=== PATIENT | female | born 1995 | race American Indian/Alaskan Native ===

== ENCOUNTER 2018-02-17 00:36 | Emergency (ER) | payer OTHER ==
--- NOTE | 2018-02-17 03:09 | XRay Report ---
FINAL REPORT EXAM: XR L-Spine CLINICAL INDICATIONS: LBP FINDINGS: AP and lateral views of the lumbar spine were acquired and demonstrate no fracture or malalignment of the cervical spine. The intervertebral disc space heights appear preserved. IMPRESSION: NO FRACTURE IS SEEN IN THE CERVICAL SPINE
[2018-02-17] MEDS ORDERED: TORADOL IM ONE (07:38)
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
[2018-02-17 08:27] VITALS: BP 110/22
== END 2018-02-17 08:25 | disposition home or self-care (01) ==
LOC: ED 00:36
DX: S39.012A Strain of muscle, fascia and tendon of lower back, initial encounter (principal); G43.009 Migraine without aura, not intractable, without status migrainosus; V89.2XXA Person injured in unspecified motor-vehicle accident, traffic, initial encounter; Y93.89 Activity, other specified; Y92.488 Other paved roadways as the place of occurrence of the external cause; Y99.8 Other external cause status
CPT/HCPCS: 72100; 99283; J1885